=== PATIENT | male | born 1990 | race Caucasian/White ===

== ENCOUNTER 2021-08-30 12:23 | Emergency (ER) | payer BC ==
[2021-08-30] MEDS: GI Cocktail Oral Solution 30 ML PO ONE (12:55)
[2021-08-30 13:40] LABS: ANION GAP 16.1 mEq/L (7-13); CHLORIDE,CL 103 mmol/L (98-107); SODIUM,NA 141 mmol/L (136-145)
[2021-08-30 13:55] LABS: CORONAVIRUS COVID-19 NAA NEGATIVE (NEGATIVE)
[2021-08-30 14:00] LABS: AMPHETAMINES,URINE NEGATIVE (NEGATIVE); BARBITURATES,URINE NEGATIVE (NEGATIVE); BENZODIAZEPINE,URINE NEGATIVE (NEGATIVE); MDMA (ECSTASY), URINE NEGATIVE (NEGATIVE); METHADONE,URINE NEGATIVE (NEGATIVE); METHAMPHETAMINES,URINE NEGATIVE (NEGATIVE); OPIATES,URINE NEGATIVE (NEGATIVE); OXYCODONE,URINE NEGATIVE (NEGATIVE); PHENCYCLIDINE,URINE NEGATIVE (NEGATIVE); TCA,URINE NEGATIVE (NEGATIVE)
== END 2021-08-30 14:37 | disposition home or self-care (01) ==
LOC: DL.ED 12:23
DX: R07.89 Other chest pain (principal); K21.9 Gastro-esophageal reflux disease without esophagitis; Z79.899 Other long term (current) drug therapy; Z20.822 Contact with and (suspected) exposure to COVID-19
CPT/HCPCS: 0240U; 36415; 71045; 80053; 80305; 80307; 81001; 82150; 83605; 83690; 84484; 85025; 86140; 87086; 93005; 99285; A9270

== ENCOUNTER 2023-08-06 08:00 | Emergency (ER) | payer SELFPAY ==
[2023-08-06 08:58] LABS: APPEARANCE,URINE SLIGHTLY CLOUDY (CLEAR); BILIRUBIN,URINE NEGATIVE (NEGATIVE); COLOR,URINE YELLOW (YELLOW); GLUCOSE,URINE NEGATIVE (NEGATIVE); KETONES,URINE NEGATIVE (NEGATIVE); LEUKOCYTE ESTERASE,URINE TRACE (NEGATIVE); NITRITE,URINE NEGATIVE (NEGATIVE); OCCULT BLOOD,URINE MODERATE (NEGATIVE); PROTEIN,URINE TRACE (NEGATIVE); UROBILINOGEN,URINE 0.2 mg/dL (0.2-1.0)
[2023-08-06] MEDS ORDERED: cefTRIAXone 1 GM, Lidocaine 1% 2.1 ML IM ONE ×2 (09:40)
[2023-08-06 09:56] LABS: BACTERIA,URINE FEW /HPF (0-FEW/HPF); EPITHELIAL CELLS,URINE FEW /HPF (NOT SEEN); MUCUS,URINE FEW /LPF (NOT SEEN); RBC,URINE 20-30 /HPF (0-5)
[2023-08-06 09:57] LABS: AMORPHOUS SEDIMENT,URINE OCCASIONAL /HPF (NOT SEEN)
== END 2023-08-06 10:15 | disposition home or self-care (01) ==
LOC: DL.ED 08:00
DX: R33.9 Retention of urine, unspecified (principal); N30.90 Cystitis, unspecified without hematuria; K21.9 Gastro-esophageal reflux disease without esophagitis
CPT/HCPCS: 81001; 87086; 87491; 87563; 87591; 96372; 99283; 99284; J0696; J3490